=== PATIENT | male | born 1955 | race Caucasian/White ===

== ENCOUNTER → 2020-12-19 | Outpatient (CLI) | payer MEDICARE, BC, OTHER | LOC: WCC 10:48 | DX: L24.9 Irritant contact dermatitis, unspecified cause (principal); L97.521 Non-pressure chronic ulcer of other part of left foot limited to breakdown of skin; M62.3 Immobility syndrome (paraplegic); Z87.891 Personal history of nicotine dependence; Z88.1 Allergy status to other antibiotic agents; Z91.010 Allergy to peanuts | CPT/HCPCS: 87070; 87077; 87186; 87205; G0463 ==